=== PATIENT | male | born 1975 | race American Indian/Alaskan Native ===

== ENCOUNTER 2017-01-31 09:28 | Emergency (ER) | payer BC ==
--- NOTE | 2017-01-31 10:44 | Emergency Department Report ---
Chief Complaint: Headache Stated Complaint: HEADACHE Time Seen by Provider: 01/31/17 10:39 - HPI History of Present Illness: PT states he is in town to burry his sister. PT states on Tuesday he fell and hit his head. PT states after his head injury, he has had dizziness. Pt denies n/v but states he hasn't eaten much in the previous 2 days to due the stress of his sister's passing. - ROS Review of Systems: + headache + dizziness - neck pain - Exam Physical Exam: pt looks well, non toxic steady gait gcs 15 A and O x 4 MSE screening note: Focused history and physical exam performed. Due to findings the following was ordered: labs, ct ED Disposition for MSE Condition: Stable
[2017-01-31 11:08] LABS: Basophils % (Auto) 0.7 % (0.0-1.8); Eosinophils % (Auto) 1.7 % (0.0-4.3); Hematocrit 41.4 % (35.5-45.6); Hemoglobin 14.1 gm/dl (11.8-15.2); Mean Corpuscular HGB Conc 34 % (32-34); Mean Corpuscular Hemoglobin 31 pg (28-32); Mean Corpuscular Volume 90 fl (84-94); Platelet Count 220 K/mm3 (140-440); Red Cell Distribution Width 13.7 % (13.2-15.2); White Blood Count 5.7 K/mm3 (4.5-11.0)
[2017-01-31 11:18] LABS: INR 1.01 (0.87-1.13)
[2017-01-31 11:19] LABS: Alanine Aminotransferase 17 units/L (7-56); Albumin 4.3 g/dL (3.9-5); Albumin/Globulin Ratio 1.2 %; Alkaline Phosphatase 58 units/L (35-129); Anion Gap 18 mmol/L; BUN/Creatinine Ratio 9.16; Blood Urea Nitrogen 11 mg/dL (9-20); Calcium 9.7 mg/dL (8.4-10.2); Carbon Dioxide 24 mmol/L (22-30); Chloride 100.6 mmol/L (98-107); Glucose 75 mg/dL (75-100); Partial Thromboplastin Time 32.6 Sec. (24.2-36.6); Potassium 4.1 mmol/L (3.6-5.0); Sodium 138 mmol/L (137-145)
--- NOTE | 2017-01-31 11:58 | Cat Scan Report ---
CT HEAD WITHOUT CONTRAST INDICATION: Fall, chronic head injury, dizziness. COMPARISON: None similar. FINDINGS: Noncontrast head CT demonstrates normal ventricles and sulci without acute or recent infarct, hemorrhage, mass effect or midline shift. No abnormal extra-axial fluid collections. 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 Few images superiorly limited due to motion artifact. Posterior fossa structures and basilar cisterns appear within normal limits. Symmetric eye globes. Possible old right orbital floor fracture. Slight nasal septal deviation. Clear paranasal sinuses and mastoid air cells. Intact calvarium. Normal overlying scalp soft tissues. Small radiopaque dental filling incidentally noted. CONCLUSION: No acute intracranial CT abnormality, as described. Thank you for the opportunity to participate in this patient's care.
--- NOTE | 2017-01-31 14:00 | Emergency Department Report ---
ED Fall HPI - General Chief Complaint: Fall Stated Complaint: HEADACHE Time Seen by Provider: 01/31/17 10:39 Source: patient Mode of arrival: Ambulatory Limitations: No Limitations - History of Present Illness Initial Comments: PT states he slipped getting out of the shower on Tuesday. PT states he hit the back of his head. PT rates headache 2/10, post throbbing. PT states he did not have loc at time of injury. PT reports that he has been intermittently dizzy and with headache since fall. PT denies neck pain. PT States he was supposed to drive home today (from [place]) but he was afraid due to having recent head injury. PT states he is unsure if he is having n/v because he has not eaten much due to the stress of having his younger sister pass. Complaint: fall -: Sudden, days(s) Fall From: standing When Fall Occurred: # days [employer] (2) Place Fall Occurred: home (of family member ) Loss of Consciousness: none Prolonged Down Time?: no Symptoms Prior to Fall: none Location: head Severity: mild Severity scale (0 -10): 2 Quality: other (mild throbbing ) Context: tripped/slipped Associated Symptoms: headache. denies: neck pain, numbness, weakness, chest paint, shortness of breath, lightheaded, vertigo - Related Data Previous Rx's Medication Instructions Recorded Last Taken Type Hydrochlorothiazide [HCTZ] 12.5 mg PO QDAY #14 capsule 01/31/17 Unknown Rx Ibuprofen [Motrin] 600 mg PO Q8H PRN #15 tablet 01/31/17 Unknown Rx Allergies Allergy/AdvReac Type Severity Reaction Status Date / Time No Known Allergies Allergy Unverified 05/16/16 11:13 ED Review of Systems ROS: Stated complaint: HEADACHE Other details as noted in HPI Comment: All other systems reviewed and negative Constitutional: denies: chills, fever Respiratory: denies: shortness of breath, SOB with exertion, SOB at rest Cardiovascular: denies: chest pain, palpitations, syncope Gastrointestinal: denies: abdominal pain, nausea, vomiting Neurological: headache. denies: weakness, numbness ED Past Medical Hx - Past Medical History Previous Medical History?: No Hx Hypertension: No Additional medical history: Right flank pain - Surgical History Past Surgical History?: Yes Additional Surgical History: spleenectomy - Family History Family history: hypertension - Social History Smoking Status: Current Every Day Smoker Substance Use Type: Alcohol - Medications Home Medications: Home Medications Medication Instructions Recorded Confirmed Last Taken Type Hydrochlorothiazide [HCTZ] 12.5 mg PO QDAY #14 capsule 01/31/17 Unknown Rx Ibuprofen [Motrin] 600 mg PO Q8H PRN #15 tablet 01/31/17 Unknown Rx ED Physical Exam - General Limitations: No Limitations General appearance: alert, in no apparent distress - Head Head exam: Present: atraumatic, normocephalic, normal inspection - Eye Eye exam: Present: normal appearance, PERRL, EOMI. Absent: conjunctival injection - ENT ENT exam: Present: normal exam, normal external ear exam - Neck Neck exam: Present: normal inspection, full ROM, other (no post midline C-spine tendernss ). Absent: tenderness - Respiratory Respiratory exam: Present: normal lung sounds bilaterally. Absent: respiratory distress - Cardiovascular Cardiovascular Exam: Present: regular rate, normal rhythm, normal heart sounds - Extremities Exam Extremities exam: Present: normal inspection, full ROM - Back Exam Back exam: Present: normal inspection, full ROM. Absent: tenderness, CVA tenderness (R), CVA tenderness (L), muscle spasm, paraspinal tenderness, vertebral tenderness - Neurological Exam Neurological exam: Present: alert, oriented X3, CN II-XII intact, normal gait - Expanded Neurological Exam Expanded Patient oriented to: Present: person, place, time Speech: Present: fluid speech Cranial nerves: EOM's Intact: Normal Ataxia: Absent: yes Cerebellar function: Finger to Nose: Normal Best Eye Response ([place]): (4) open spontaneously Best Motor Response ([place]): (6) obeys commands Best Verbal Response ([place]): (5) oriented [place] Total: 15 - Psychiatric Psychiatric exam: Present: normal affect, normal mood - Skin Skin exam: Present: warm, dry, intact, normal color ED Course Vital Signs 01/31/17 01/31/17 01/31/17 10:39 14:04 14:07 Temperature 98.2 F Pulse Rate 80 64 Respiratory 18 Rate Blood Pressure 174/130 Blood Pressure 164/106 [Left] Blood Pressure 172/108 [Right] O2 Sat by Pulse 100 Oximetry PT denies hx of htn. bp rechecked manually in both arms. - Reevaluation(s) Reevaluation #1: 01/31/17 14:09 PT wanting discharge from ED. Reviewed labs and CT. PT aware of old findings on CT scan. PT states he does have a hx of orbital fx. PT's bp rechecked by provider, improved from initial recording. PT has a family hx of htn. PT aware that his bp is elevated on today's visit. PT aware he will need to follow up with PCP when he return to [place]. PT has no questions at this time. - Pulse Oximetry Interpretation Digit-Finger Initial Pulse Oximetry Readin Actions Taken: none ED Medical Decision Making - Lab Data Result diagrams: 01/31/17 10:47 01/31/17 10:47 Laboratory Results - last 24 hr 01/31/17 01/31/17 01/31/17 10:47 10:47 10:47 WBC 5.7 RBC 4.60 Hgb 14.1 Hct 41.4 MCV 90 MCH 31 MCHC 34 RDW 13.7 Plt Count 220 Lymph % (Auto) 22.7 [place] % (Auto) 6.5 Eos % (Auto) 1.7 Baso % (Auto) 0.7 Lymph # 1.3 [place] # 0.4 Eos # 0.1 Baso # 0.0 Seg Neutrophils % 68.4 Seg Neutrophils # 3.9 PT 13.2 INR 1.01 APTT 32.6 Sodium 138 Potassium 4.1 Chloride 100.6 Carbon Dioxide 24 Anion Gap 18 BUN 11 Creatinine 1.2 Estimated GFR > 60 BUN/Creatinine Ratio 9.16 Glucose 75 Calcium 9.7 Total Bilirubin 0.40 AST 18 ALT 17 Alkaline Phosphatase 58 Total Protein 8.0 Albumin 4.3 Albumin/Globulin Ratio 1.2 - Radiology Data Radiology results: report reviewed CT head - NAP old orbital floor fx, old infarct - Differential Diagnosis concussion, intracranial process Critical Care Time: No Critical care attestation.: If time is entered above; I have spent that time in minutes in the direct care of this critically ill patient, excluding procedure time. ED Disposition Clinical Impression: Elevated blood pressure reading Fall Qualifiers: Encounter type: initial encounter Qualified Code(s): W19.XXXA - Unspecified fall, initial encounter CHI (closed head injury) Qualifiers: Encounter type: initial encounter Qualified Code(s): S09.90XA - Unspecified injury of head, initial encounter Concussion Qualifiers: Encounter type: initial encounter Loss of consciousness presence/duration: without LOC Qualified Code(s): S06.0X0A - Concussion without loss of consciousness, initial encounter Disposition: TO HOME OR SELFCARE Is pt being admited?: No Does the pt Need Aspirin: No Condition: Stable Instructions: Concussion (ED), Minor Head Injury (ED), Chronic Hypertension (ED ), Dizziness (ED) Additional Instructions: When you return home, you must follow up with a PCP. You will need your bp rechecked in 3-5 days. Return to ED if worsening or concerns. Prescriptions: Hydrochlorothiazide [HCTZ] 12.5 mg PO QDAY #14 capsule Ibuprofen [Motrin] 600 mg PO Q8H PRN #15 tablet PRN Reason: Pain Referrals: PRIMARY CARE, [Primary Care Provider] - 3-5 Days Forms: Work/School Release Form(ED) Time of Disposition: 14:18
[2017-01-31 14:07] VITALS: BP 164/106
== END 2017-01-31 14:22 | disposition home or self-care (01) ==
LOC: ED 09:28
DX: S06.0X0A Concussion without loss of consciousness, initial encounter (principal); R03.0 Elevated blood-pressure reading, without diagnosis of hypertension; F17.200 Nicotine dependence, unspecified, uncomplicated; W01.198A Fall on same level from slipping, tripping and stumbling with subsequent striking against other object, initial encounter; Y93.89 Activity, other specified; Y99.8 Other external cause status; Y92.009 Unspecified place in unspecified non-institutional (private) residence as the place of occurrence of the external cause
CPT/HCPCS: 36415; 70450; 80053; 85025; 85610; 85730